=== PATIENT | male | born 1970 | race Native Hawaiian/Other Pacific Islander ===

== ENCOUNTER → 2022-03-03 | Outpatient (CLI) | payer OTHER ==
[~2022-03-03] MED LIST: ADIPEX-P37.5 M1 OR
[2022-03-03 14:58] LABS: PLATELET COUNT 341 K/uL (142-355)
[2022-03-03 15:03] LABS: POTASSIUM 4.2 mmol/L (3.6-5.2)
== END ==
LOC: LABW 14:42
PROVIDERS: ATTEND Nurse Practitioner Family
DX: Z01.818 Encounter for other preprocedural examination (principal)
CPT/HCPCS: 36415; 80053; 85027